=== PATIENT | male | born 2000 | race African-American/Black ===

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

== ENCOUNTER 2021-04-26 03:46 | Emergency (ER) | payer SELFPAY ==
[2021-04-26 04:14] LABS: Bacteria/HPF None Seen HPF (None Seen); Bilirubin Negative (Negative); Blood, Urine 3+ (Negative); Clarity Turbid (Clear); Glucose, Urine (Dipstick) Normal (Negative); Ketone, Urine Negative (Negative); Leukocyte 500 Leu/uL (Negative); Nitrite Negative (Negative); Protein, Urine (Dipstick) 10 mg/dL (Neg-Trace); RBC/HPF Greater than 50 HPF (0-3); Specific Gravity, Urine 1.015 (1.002-1.036); Squamous Epithelial None Seen HPF (0-3); Urobilinogen Normal mg/dL (Less than 2); WBC/HPF Greater than 50 HPF (0-3)
[2021-04-26] MEDS ORDERED: cefTRIAXone\\ROCEPHIN 500 MG VIAL ONE (05:01)
[2021-04-26] MEDS ORDERED: Lidocaine 1% PF 5 ML VIAL ONE (05:02)
[2021-04-26 20:21] LABS: Chlam.trachomatis by PCR,Urine Not Detected (NotDetected)
== END 2021-04-26 05:15 | disposition home or self-care (01) ==
LOC: ERS 03:46
DX: N34.1 Nonspecific urethritis (principal); F17.210 Nicotine dependence, cigarettes, uncomplicated
CPT/HCPCS: 81003; 81015; 87086; 87491; 87591; 96372; 99283; J0696

== ENCOUNTER 2022-09-15 05:22 | Emergency (ER) | payer SELFPAY ==
[2022-09-15] MEDS ORDERED: Ketorolac Tromethamine 30 MG/ML VIAL ONE (05:35)
== END 2022-09-15 05:49 | disposition home or self-care (01) ==
LOC: ERS 05:22
DX: K02.9 Dental caries, unspecified (principal); F17.210 Nicotine dependence, cigarettes, uncomplicated
CPT/HCPCS: 96372; 99282; J1885